=== PATIENT | female | born 1975 | race Caucasian/White ===

== ENCOUNTER → 2018-02-27 | Outpatient (CLI) | payer OTHER ==
[2014-05-29 16:13] VITALS: BMI 30.4
[~2018-02-27] MED LIST: ACET-1718 PO; Ferrous Sulfate PO; IBUP800T37 PO; LOR5/325 PO
--- NOTE | 2018-02-28 10:49 | RADIOLOGY IMAGING REPORT ---
FACILITY: [facility] PATIENT NAME: JUAN JOSÉ NEWMAN : [id number] MR: [id number] V: [id number] EXAM DATE: [id number] ORDERING PHYSICIAN: KATERINE RAYMOND TECHNOLOGIST: Susan Lazo PROCEDURE:BILATERAL DIGITAL SCREENING MAMMOGRAM WITH CAD ASSISTED INTERPRETATION & 3D TOMOSYNTHESIS COMPARISON:Prior mammograms 03/09/15. INDICATIONS:screening FINDINGS: There are bilateral subpectoral breast implants in place. Moderately dense fibroglandular tissue is seen anterior to the implants. The parenchymal pattern has remained stable allowing for difference in mammographic technique & patient positioning. There is no evidence of malignant appearing mass, malignant appearing calcifications or other secondary sign of malignancy in either breast. There is no evidence of implant rupture of leakage. DIAGNOSTIC CATEGORY 2--BENIGN FINDING. RECOMMENDATIONS: ROUTINE MAMMOGRAM AND CLINICAL EVALUATION. IMPRESSION: BIRADS 2: Benign finding. No significant abnormality is seen. Dictated by: Sheri Harper M.D. on 02/27/2018 at 16:09 Transcribed by: TOBIAS on 02/27/2018 at 16:21 Approved by: Sheri Harper M.D. on 02/28/2018 at 10:47 [facility]
== END ==
LOC: MAMO 01:48
PROVIDERS: ATTEND Nurse Practitioner Family
DX: Z12.31 Encounter for screening mammogram for malignant neoplasm of breast (principal)
CPT/HCPCS: 77063; 77067

== ENCOUNTER → 2018-12-25 | Outpatient (CLI) | payer OTHER ==
[2014-05-29 16:13] VITALS: BMI 30.4
[~2018-12-25] MED LIST changes: +CYCL10TA29 PO; +HYDR-385 PO; +MELO-207 PO; +TRAZ50TA52 PO; +VENL75CA4 PO
--- NOTE | 2018-12-25 15:44 | RADIOLOGY IMAGING REPORT ---
FACILITY: [facility] PATIENT NAME: Tianna Foy : 1975 MR: [id number] V: [id number] EXAM DATE: ORDERING PHYSICIAN: KENNEDY BROWN TECHNOLOGIST: Location: [facility] Patient: Tianna Foy : 1975 Visit/Account:[id number] Date of Sevice: 12/25/2018 Study: HIP LEFT Indication: Back pain after being thrown from horse Comparison study: None available Findings: Supine AP view of the pelvis and a frog-leg view of the left hip demonstrate no evidence o f acute bony abnormality. The femoral heads and necks are unremarkable. Pubic rami are unremarkable. The hip joint spaces are unremarkable bilaterally. There is no evidence of soft tissue abnormality. T here is an intrauterine device present within the pelvis. IMPRESSION: No significant abnormality identified. Report Dictated By: Kj Ramos at 12/25/2018 3:30 PM Report E-Signed By: Kj Ramos at 12/25/2018 3:35 PM WSN:[id number]
--- NOTE | 2018-12-25 15:45 | RADIOLOGY IMAGING REPORT ---
[place] [facility] [place] Tianna Foy : 1975 MR: [id number] V: [id number] EXAM DATE: ORDERING PHYSICIAN: KENNEDY BROWN TECHNOLOGIST: Location: [facility] Patient: Tianna Foy : 1975 Visit/Account:[id number] Date of Sevice: 12/25/2018 Study: HIP RIGHT Indication: Hip pain after being thrown from horse Comparison study: None available Findings: Single frog-leg lateral view of the right hip demonstrates no evidence of abnormality of the hip joint space. There is no evidence of acute fracture. Visualized soft tissues are unremarkable . IMPRESSION: Unremarkable exam Report Dictated By: Kj Ramos at 12/25/2018 3:35 PM Report E-Signed By: Kj Ramos at 12/25/2018 3:36 PM WSN:[email or web address]
--- NOTE | 2018-12-25 16:12 | RADIOLOGY IMAGING REPORT ---
FACILITY: [facility] PATIENT NAME: Tianna Foy : 1975 MR: [id number] V: [id number] EXAM DATE: ORDERING PHYSICIAN: KENNEDY BROWN TECHNOLOGIST: Location: [facility] [place] Patient: Tianna Foy : 1975 Visit/Account:[id number] Date of Sevice: 12/25/2018 XR THORACIC SPINE AP & LAT HISTORY: bucked off horse, back pain Additional history: None COMPARISON: None. FINDINGS: Thoracic spine appears intact without evidence of compression fractures. There is mild anterior reac tive endplate changes seen at T7-8 T8-9, and T9-T10,. Also noted on the swimmer's view is mild disc space narrowing C4-5 and C5-6. On the AP view there appears to be a bone spine suggesting a fracture in the left posterior sixth rib at the costovertebral junction. IMPRESSION: Probable left posterior sixth rib fracture at the costovertebral junction. There is no easily with r adiographically to further evaluate this area. CT would be required if further evaluation deemed cli nically necessary.. 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 Report Dictated By: Ari Scales MD at 12/25/2018 3:55 PM Report E-Signed By: Ari Scales MD at 12/25/2018 4:03 PM WSN:[id number]
--- NOTE | 2018-12-25 16:21 | RADIOLOGY IMAGING REPORT ---
FACILITY: [facility] [place] PATIENT NAME: Tianna Foy : 1975 MR: [id number] V: [id number] EXAM DATE: ORDERING PHYSICIAN: KENNEDY BROWN TECHNOLOGIST: Location: [facility] - [place] Patient: Tianna Foy : 1975 Visit/Account:[id number] Date of Sevice: 12/25/2018 L-SPINE 2 OR 3 VIEW HISTORY: bucked off horse, back pain Additional history: None COMPARISON: Comparison radiographs 05/02/2016 and comparison MRI 12/05/2017 FINDINGS: There is sclerosis at the L5-S1 facets. Equivocal findings for spondylolisthesis. The appearance is unchanged. Moderate disc space narrowing L5-S1 unchanged from previous exam. IMPRESSION: Negative for trauma. L5-S1 degenerative disc disease. Report Dictated By: Ari Scales MD at 12/25/2018 4:06 PM Report E-Signed By: Ari Scales MD at 12/25/2018 4:11 PM WSN:[id number]
== END ==
LOC: RAD 14:52
PROVIDERS: ATTEND Internal Medicine
DX: M51.36 Other intervertebral disc degeneration, lumbar region (principal); M51.34 Other intervertebral disc degeneration, thoracic region; M51.37 Other intervertebral disc degeneration, lumbosacral region
CPT/HCPCS: 72070; 72100